=== PATIENT | female | born 1930 | race Caucasian/White ===

== ENCOUNTER → 2017-02-20 | Outpatient (CLI) | payer OTHER, MEDICARE ==
[~2017-02-20] MED LIST: ADULT LOW DOSE81 MG PO; AMIODARONE HCL100 MG PO; BIOTIN5 M1 PO; CALCIUM 500 +1 EAC5 PO; CENTRUM SILVER1 EAC4 PO; ELIQUIS2.5 MG PO; LOPRESSOR25 PO; NORCO 5-325 TA1 EACH PO; OCUVITE TABLET1 EAC1 PO; OS CAL PO; REFRESH TEARS OPHTHALMIC; TOPROL XL25 MG PO; TOPROL XL50 MG PO; [UNRECOGNIZED DRUG - OTHER] PO
--- NOTE | ~2017-02-20 | P ---
[facility] [place] [address] PROCEDURE REPORT Name: EMELYNCOLBY Vanessa Room #: REG [facility]#: [id number] Admission: 02/20/17 Attend Phys: Yonas Baxter Discharge: Date of : [birth year] Report #: [id number] THIS REPORT FOR: //name// CC: BERNA Bartholomew DATE OF SERVICE: 02/20/2017 PROCEDURE PERFORMED: Upper endoscopy with biopsies. HISTORY OF PRESENT ILLNESS: The patient is an 86-year-old female with weight loss who underwent a CT scan of her abdomen and pelvis apparently showing multiple lesions in the liver suspicious for possible malignancy from metastatic disease. The patient denies any significant GI symptoms. She does complain of generalized fatigue. She was started on Zantac recently. DESCRIPTION OF PROCEDURE: The risks and benefits of the procedure were explained to the patient, those risks including but not limited to bleeding, perforation and the risk of sedation. She understood these risks and gave informed consent. Sedation was given using propofol per anesthesia. Next, using a standard DeviceFidelityinon upper endoscope, the scope was placed in the patient's mouth and advanced under direct vision through the esophagus, stomach and into the second portion of the duodenum. The esophagus was normal throughout. The GE junction was normal. There was a mild gastritis noted in the gastric antrum. Biopsies were obtained to rule out H. pylori. No evidence of ulcerations within the stomach. The pylorus was normal and patent. In the duodenal bulb, there were 2 small superficial 3 mm clean white based ulcers, no bleeding. The first and second portion of the duodenum was normal. The scope was then withdrawn and the procedure terminated. The patient tolerated the procedure well. IMPRESSION: 1. Two small duodenal ulcers, superficial. 2. Mild gastritis. 3. Otherwise, normal upper endoscopy. RECOMMENDATIONS: 1. Await biopsy results. 2. Would recommend daily PPI therapy instead of Zantac. 3. We will proceed with colonoscopy next today. [address] [address] PROCEDURE REPORT Name: COLBY DUNAWAY Room #: REG [facility]#: [id number] Admission: 02/20/17 Attend Phys: Yonas Baxter Discharge: Date of : [birth year] Report #: [id number] Thank you for allowing me to participate in her care. <ELECTRONICALLY SIGNED> By: Yonas Bartholomew MD 02/24/17 1210 1154 1321 Yonas Bartholomew MD /nt
--- NOTE | ~2017-02-20 | S ---
[facility] [place] [address] SURGICAL PATH RPT PROCEDURE Name: ELIZABETH DUNAWAY Room #: REG CLI MJuany.#: [id number] Admission: 02/20/17 Date of : [birth year] Discharge: Report #: [id number] Path Case #: [id number] PATHOLOGY REPORT COLLECTION DATE: 02/20/2017 RECEIVED DATE: 02/20/2017 SUBMITTING PHYS: Dr. Yonas Bartholomew OTHER PHYS: Dr. Yaya Mcwilliams SPECIMEN(S) RECEIVED: A.Gastric bx R/O H. pylori * * * * * * * * * * * * FINAL DIAGNOSIS: Gastric mucosa, gastric rule out H. pylori, endoscopic biopsy: - Mild chronic gastritis. - Negative for intestinal metaplasia or atrophy. - Negative for Helicobacter pylori. COMMENT: Helicobacter pylori immunohistochemical stain performed on block A1: Negative. (IUV:reginald; 02/23/2017) PATHOLOGIST: Perri Faith M.D. REPORT ELECTRONICALLY SIGNED BY: Perri Faith M.D. DATE/TIME: 02/23/2017 17:26 * * * * * * * * * * * * GROSS PATHOLOGY: Received in formalin labeled "Elizabeth Dunaway, gastric biopsy rule out H. pylori" is a 0.8 x 0.6 x 0.2 cm aggregate of shaw-brown soft tissue fragments. The specimen is submitted in cassette A1. ([facility]; 02/22/2017) CLINICAL HISTORY: Liver nodule, weight loss, gastritis, duodenal ulcers, diverticulosis. INITIAL CPT CODE(S): A; 60757, 80193 Professional services performed by [facility] at [facility] [address] , [place] [address] Technical services performed by [facility] at [address] [place] [address] [place] [address] SURGICAL PATH RPT PROCEDURE Name: ELIZABETH DUNAWAY Room #: REG OKSANA Velazquez#: [id number] Admission: 02/20/17 Date of : [birth year] Discharge: Report #: [id number] Path Case #: [id number] [place] [address]. [facility] [address] [place] [address] PHONE: [phone] DIRECTOR: Naldo Cerrato M.D. * * * END OF REPORT * * *
--- NOTE | ~2017-02-20 | P ---
[facility] [place] [address] PROCEDURE REPORT Name: COLBY DUNAWAY Room #: REG [facility]#: [id number] Admission: 02/20/17 Attend Phys: Yonas Baxter Discharge: Date of : [birth year] Report #: [id number] THIS REPORT FOR: //name// CC: BERNA Bartholomew DATE OF SERVICE: 02/20/2017 PROCEDURE PERFORMED: Colonoscopy. HISTORY OF PRESENT ILLNESS: The patient is an 86-year-old female with recent weight loss. CT scan of the abdomen and pelvis apparently showing numerous liver lesions suspicious for metastatic malignancy. Upper endoscopy was just performed, mild gastritis was noted with two small superficial ulcers in the duodenum. Plan is for colonoscopy next today. DESCRIPTION OF PROCEDURE: The risks and benefits of the procedure were explained to the patient, those risks including but not limited to bleeding, perforation, the risk of sedation. She understood these risks and gave informed consent. Sedation was given using propofol per anesthesia. Next, a digital rectal exam was initially performed, which was normal. Next, using a standard Fujinon colonoscope, the scope was placed in the patient's anus and advanced under direct vision to the cecum. The overall prep was good. The cecum and ileocecal valve were normal in appearance. The ascending, transverse and descending colon were normal. Multiple diverticula were noted in the sigmoid colon, no evidence of inflammation, otherwise normal. The rectal mucosa was normal. On retroflexion, no abnormalities were noted. The scope was then withdrawn and the procedure terminated. The patient tolerated the procedure well. IMPRESSION: 1. Sigmoid diverticulosis. 2. Otherwise, normal colonoscopy. RECOMMENDATIONS: Would recommend considering a CT-guided or ultrasound-guided biopsy of the liver masses. Thank you for allowing me to participate in her care. <ELECTRONICALLY SIGNED> By: Yonas Bartholomew MD 02/24/17 1210 1157 1324 Yonas Bartholomew MD /nt
== END | disposition home or self-care (01) ==
LOC: GI 08:52
DX: K57.30 Diverticulosis of large intestine without perforation or abscess without bleeding (principal); K29.50 Unspecified chronic gastritis without bleeding; K26.9 Duodenal ulcer, unspecified as acute or chronic, without hemorrhage or perforation; R63.4 Abnormal weight loss
CPT/HCPCS: 62110

== ENCOUNTER → 2017-03-13 | Outpatient (CLI) | payer OTHER, MEDICARE ==
[~2017-03-13] MED LIST changes: +BISACODYL SUPP10 MG RECTAL; +KEFLEX500 M1 PO
== END ==
LOC: PET 08:58
DX: K76.89 Other specified diseases of liver (principal)